=== PATIENT | female | born 1945 | race Caucasian/White ===

== ENCOUNTER 2022-12-08 11:55 | Emergency (ER) | payer MEDICARE, SELFPAY ==
--- NOTE | 2022-12-08 07:33 | ECG_ITS ---
Test Reason : UNRESPONSIVE Blood Pressure : / mmHG Vent. Rate : 070 BPM Atrial Rate : 000 BPM P-R Int : 000 ms QRS Dur : 168 ms QT Int : 382 ms P-R-T Axes : 000 022 -07 degrees QTc Int : 412 ms Atrial fibrillation Right bundle branch block ST elevation in Lateral leads Abnormal ECG No previous ECGs available Referred By: Madai Daniel Electronically Signed By:TORI YOUNG
--- NOTE | 2022-12-08 12:20 | MHC.EDTECH ---
TIME OF : 12:15PM PER DR LANG
--- NOTE | 2022-12-08 12:25 | ED.CPR ---
HPI - CPR General Chief Complaint: Cardiac Arrest/CPR Stated Complaint: FOUND UNRESPONSIVE/CARDIAC ARREST PER EMS Time Seen by Provider: 12/08/22 12:02 Source: EMS and old records reviewed Mode of arrival: EMS Limitations: other (Cardiac arrest, unresponsive.) History of Present Illness HPI narrative: 77-year-old female with unknown past medical history found by a bystander unresponsive and CPR was started immediately by bystander with 10 minutes time down before EMS arrival, when EMS arrived patient was in VFib patient was defibrillated and received multiple IV epinephrine in the field and patient was intubated at the scene, on arrival patient was in VFib patient was defibrillated x2 in the ED, patient was given amiodarone 300 mg IV and 1 amp of bicarb and multiple IV epinephrine 1 mg each with brief episodes of palpable pulse. Patient remained in asystole with no pulse patient was pronounced at 12:15. Records was obtained from [facility] last admission was 2016 both for chest pain, patient with known history of hypertension and COPD. Additional history was obtained from the daughter who also a physician assistant operator patient was complaining of chest pain on and off for the last 2 days and the daughter started her on losartan and calcium channel [place] for hypertension. Patient did not seek another medical attention for chest pain. Related Data Allergies Allergy/AdvReac Type Severity Reaction Status Date / Time Unable to Assess Allergy Verified 12/08/22 13:33 Review of Systems Review of Systems: Yes Unobtainable due to mental condition (Cardiac arrest) [facility] Social History Social History Advance Directives: No Physical Exam Vital Signs: Vital Signs: BMI result Body Mass Index 20.7 Pulseless, apneic (intubated). General: Unresponsive, pale, no sign of trauma. HEENT: Normal inspection, no sign of head injury, pupil is 4 mm fixed bilaterally. HEART; no heart sounds. Lungs: No spontaneous breathing intubated with good air entry bilaterally. Abdomen: Mildly distended with no sign of trauma. Back: No trauma. Extremities: No trauma. Neuro : unresponsive, fixed dilated pupil. Course Course Course Narrative: Family was notified, son, daughter, and at the bedside, the case was discussed and accepted by [place], case [id number]. By [place]. Medical Decision Making Differential Diagnosis Differential Diagnoses: The differential diagnosis associated with the presentation includes (Cardiac arrest.) Lab Data Labs: Lab Results 12/08/22 Range/Units 11:58 POC Glucose 130 H (60-115) mg/dL Discharge Plan Discharge Clinical Impression: Cardiac arrest Patient Disposition: Interventions: Organ Donor Nursing Doc/Post Mortem care Last Done: 12/08/22 15:24 Discharge Date/Time: 12/08/22 14:00 Date/Time: 12/08/22 12:15
[2022-12-08 12:30] VITALS: BMI 20.7
[2022-12-08 12:51] LABS: Glucose, Whole Blood 130 mg/dL (60-115)
--- NOTE | 2022-12-08 13:09 | PC.NURSE ---
Addendum entered by Feroz Horn RN 12/08/22 13:18: Reference number [id number] given by Ene. Original Note: [facility] was contacted ([phone]) to report pt's . This RN spoke with Ene. Pt's event information reported. Per Ene pt is a potential tissue donor. Post mortem care can be done per protocol and pt can be taken to morgue. Family at bedside at this time.
== END 2022-12-08 14:00 | disposition expired ==
PROVIDERS: Emergency Provider Emergency Medicine; PCP Physician Assistant
DX: I46.9 Cardiac arrest, cause unspecified (principal); I10 Essential (primary) hypertension; J44.9 Chronic obstructive pulmonary disease, unspecified
CPT/HCPCS: 82947; 93005; 96374; 96375; 99282; 99285; J0171; J0282